=== PATIENT | female | born 1970 | race Caucasian/White ===

== ENCOUNTER 2016-10-31 12:28 | Outpatient (CLI) | payer BC ==
[2016-10-31 18:35] LABS: Free T3 4.26 pg/mL (1.71-3.71)
== END 2016-10-31 12:29 | disposition home or self-care (01) ==
LOC: BURLAB 12:28
PROVIDERS: ATTEND Internal Medicine Rheumatology
DX: E03.9 Hypothyroidism, unspecified (principal)
CPT/HCPCS: 36415; 84439; 84443; 84481; 86376; 86800